=== PATIENT | male | born 1950 | race Two or more races ===

== ENCOUNTER → 2019-03-07 | Outpatient (CLI) | payer OTHER ==
--- NOTE | 2019-03-07 10:39 | CONS ---
Assessment/Plan Assessment/Plan Hospital Course (Demo Recall) 68-year-old male with moderate severe osteoarthritis of the right knee Most severe in the medial compartment. Overall he tolerates his symptoms well however he is having recently more pain that is now rated 78/10. Patient would be a good candidate for steroid injection of the right knee. Patient is interested in continuing conservative treatment. Plan: Authorization for right knee steroid injection Authorization for right knee physical therapy Follow-up after authorization for knee steroid injection. Consultation Date/Type/Reason Admit Date/Time Date of Consultation: Mar 07, 2019 Reason for Consultation Right knee pain Date/Time of Note DATE: 03/07/19 TIME: 10:30 Hx of Present Illness This is a 68-year-old male with a chief complaint of right knee pain. The pain began approximately years ago. The patients pain is in the medial aspect of the right knee. Pain is not radiating to the lower leg. The pain is rated as a 78/10. Patient denies complaints of numbness or tingling. The pain is exacerbated by climbing stairs and ambulation. Patient has been taking acetaminophen on a p.r.n. basis as well as using ice. Patient has history of renal carcinoma and is status post left nephrectomy. He cannot take NSAIDs. Right kidney function is stable per patient. Cancer was not metastatic. Duration: Years Injury: Began after twisting knee many years ago Walking tolerance: At least 10 blocks Limp: No Support: No Swelling: Yes Crepitation: Yes Instability: No Stairs: Uses normally Physical Therapy: No Injections: No NSAIDs: Contraindicated secondary to left nephrectomy Prior surgery: No Back pain: No Hip pain: No Risk of AVN : No Patient denies fever, chills, shortness of breath, chest pain, nausea/vomiting, constipation, diarrhea, numbness, and tingling. Past Medical History Renal carcinoma, left kidney status post nephrectomy Rosacea Acne BPH Hypertension Past Surgical History Umbilical hernia repair 1999 Left nephrectomy February 2017 Social History Alcohol Use: none Smoking Status: Former smoker Drug Use: none Exam/Review of Systems Exam Vitals Weight: 180 pounds Height: 5 foot 6 inches Temperature: 90.4 Heart Rate: 64 Blood Pressure: 168/88 Respiratory Rate: 14 Exam General: Alert, oriented x3. No Acute Distress. Heart: Regular rate and rhythm. Lungs: No respiratory distress. No accessory muscle use. Musculoskeletal: Right Knee This is a well developed male who is alert, oriented times three and in no apparent distress. Skin is intact over the right knee as well as the lower extremity with no abrasions, lacerations, or ulcerations. Observation of the patient's gait reveals a non- antalgic gait with Varus thrust. Frontal plane alignment is varus. There is pain on palpation of medial joint line. The patient demonstrates grinding anteriorly with ROM. Range of motion: 3 extension to approximately 130 degrees of flexion. Collateral ligament testing reveals no instability with varus or valgus stress at 0 and 30 degrees of flexion. There is pseudolaxity secondary to significant varus deformity. Negative Alyson's and negative posterior drawer. Neurovascularly intact with 5/5 EHL/tibialis anterior/gastroc. Sensation intact to light touch in a sural, saphenous, deep peroneal, superficial peroneal, medial and lateral plantar nerve distribution. Palpable, symmetric dorsalis pedis and posterior tibial pulses in both lower extremities. Hip examination normal. Imaging Imaging The patient received a standard set of films today that were personally review ed. Imaging included a standing bilateral knee AP, PA flexion, merchant views and a dedicated lateral of the affected knee: There is varus alignment of the knee. There is near complete loss of joint space medial compartment(s) moderate joint line space in the patellofemoral. There is osteophyte formation. There is subchondral sclerosis. There are subchondral cysts. Degenerative changes are most severe in the medial compartment(s) YOHANNES HYATT MD Mar 07, 2019 10:39
--- NOTE | 2019-03-08 15:02 | RADRPT ---
PROCEDURE: XR Knees. CLINICAL INDICATION: Bilateral knee pain. TECHNIQUE: Total of eight views. Weightbearing frontal, oblique, and lateral views of the both kne es. Patellar views of both knees. COMPARISON: No prior study is available for comparison. FINDINGS: There is no fracture or dislocation. The soft tissues are normal. There are degenerative changes with osteophytes arising from all 3 joint compartment margins bilatera lly. There is bilateral medial joint compartment narrowing. There is no lytic or blastic lesion. There is no radiopaque foreign body. IMPRESSION: 1. Moderate degenerative changes of both knees. 2. Otherwise unremarkable study. RPTAT: QQ .Ammon Hartmann MD, MD Date Time Electronically viewed and signed by .Ammon Hartmann MD, MD on 03/08/2019 15:02 .R/
== END | disposition home or self-care (01) ==
LOC: HKI 08:57
PROVIDERS: ATTEND Orthopaedic Surgery Adult Reconstructive Orthopaedic Surgery
DX: M17.11 Unilateral primary osteoarthritis, right knee (principal); Z90.5 Acquired absence of kidney
CPT/HCPCS: 73564; Z7500; G0463